=== PATIENT | female | born 1990 | race Caucasian/White ===

== ENCOUNTER 2018-02-12 10:00 | Emergency (ER) | payer MEDICAID ==
[~2018-02-12] VITALS: Ht 160 cm; Wt 60.3 kg
[2018-02-12 10:05] VITALS: BP 109/67
--- NOTE | 2018-02-12 10:10 | NUR ---
c/o intermittent lower abdominal cramping x2 days fatigue with heavy vaginal bleeding when stopped control 2 days 5 sanitary napkins/day . DENIES N/V/D; SKIN IS PINK/WARM/DRY; AAOX4 WITH EVEN AND STEADY GAIT; LUNGS CLEAR BL; HR EVEN AND REGULAR; PT DENIES ANY FEVER, CP, SOB, OR COUGH AT THIS TIME; PATIENT STATES PAIN OF 8/10 AT THIS TIME; VSS; PATIENT POSITIONED FOR COMFORT; HOB ELEVATED; BEDRAILS UP X2; BED DOWN. ER MD MADE AWARE OF PT STATUS.
--- NOTE | 2018-02-12 10:11 | NUR ---
PT AMBULATES TO BED 12
--- NOTE | 2018-02-12 10:31 | NUR ---
Patient being evaluated by physician at bedside.
[2018-02-12] MEDS ORDERED: KETOROLAC 60 MG/2 ML VIAL IM ONE (10:35)
[2018-02-12] MEDS ORDERED: traMADol 50 MG TAB PO ONE (10:35)
[2018-02-12 11:39] VITALS: BP 115/70
== END 2018-02-12 11:40 | disposition home or self-care (01) ==
LOC: MED 10:00
DX: N94.6 Dysmenorrhea, unspecified (principal)
CPT/HCPCS: 81002; 81025; 96372; 99283; J1885

== ENCOUNTER 2021-01-30 15:26 | Emergency (ER) | payer BC, MEDICAID ==
[~2021-01-30] VITALS: Ht 160 cm; Wt 63.5 kg
[2021-01-30 15:50] VITALS: BP 103/66
--- NOTE | 2021-01-30 16:55 | NUR ---
30/F BIB SELF WITH C/O SORE THROAT, EAR PAIN AND SINUS PAIN X3 DAYS. REPORTS TAKING IBUPROFEN WITH NO RELIEF. DENIES SOB, CP, FEVERS.
[2021-01-30] MEDS ORDERED: FLUT0.0571 NS (17:02)
[2021-01-30] MEDS ORDERED: AMOX-999 PO (17:02)
[2021-01-30] MEDS ORDERED: IBUP-2213 PO (17:02)
[2021-01-30] MEDS ORDERED: BENZ1LOZ98 PO (17:02)
[2021-01-30 17:17] VITALS: BP 110/68
--- NOTE | 2021-01-30 17:17 | NUR ---
Patient discharged with v/s stable. Written and verbal after care instructions given and explained. Patient alert, oriented and verbalized understanding of instructions. Ambulatory with steady gait. All questions addressed prior to discharge. ID band removed. Patient advised to follow up with PMD. Rx of AMOXICILLIN/POTASSIUM,FLUTICASONE, IBU given. Patient educated on indication of medication including possible reaction and side effects. Opportunity to ask questions provided and answered.
== END 2021-01-30 17:17 | disposition home or self-care (01) ==
LOC: MED 15:26
DX: J02.9 Acute pharyngitis, unspecified (principal); J34.89 Other specified disorders of nose and nasal sinuses
CPT/HCPCS: 99283